=== PATIENT | female | born 1985 | race Caucasian/White ===

== ENCOUNTER 2018-08-03 16:21 | Emergency (ER) | payer MEDICAID ==
[~2018-08-03] VITALS: Ht 165.1 cm; Wt 68.0 kg
[2018-08-03 17:02] VITALS: BP 119/95
[2018-08-03] MEDS ORDERED: LORazepam 1 MG TAB PO ONE (19:50)
[2018-08-03 20:18] VITALS: BP 111/66
== END 2018-08-03 20:18 | disposition home or self-care (01) ==
LOC: MED 16:21
DX: F53.0 Postpartum depression (principal)
CPT/HCPCS: 99283